=== PATIENT | female | born 1975 | race Caucasian/White ===

== ENCOUNTER 2021-01-22 09:21 | Emergency (ER) | payer OTHER ==
[~2021-01-22] VITALS: Ht 154.9 cm; Wt 59.0 kg
[~2021-01-22 09:21] MED LIST: ALBUTEROL2.5 MG/0.5 INH; BUTALB-CAFF-AC1 EACH PO; CHANTIX1 MG PO; CIPRO500 MG PO; CLONAZEPAM 1 MG1 M1 PO; FLAGYL500 MG PO; IBUPROFEN 800800 M1 PO; LISINOPRIL-HCT1 EAC1 PO; NORCO 5-325 TA1 EACH PO; ONDANSETRON HCL4 M2 PO; PHENERGAN 25 MG25 M1 PO; PROZAC20 MG PO; SINGULAIR 10 MG10 M1 PO; TRAMADOL 50 MG50 MG PO; VENTOLIN HFA 1818 GM INH
[2021-01-22] MEDS ORDERED: TOPROL XL25 MG PO (09:42)
[2021-01-22] MEDS ORDERED: MEDROLDOSEPACK PO (10:04)
[2021-01-22] MEDS ORDERED: FLEXERIL PO (10:04)
[2021-01-22] MEDS ORDERED: NORCO5 PO (10:04)
[2021-01-22 10:41] VITALS: BP 129/87
== END 2021-01-22 11:02 | disposition home or self-care (01) ==
LOC: ER 09:21
DX: S46.811A Strain of other muscles, fascia and tendons at shoulder and upper arm level, right arm, initial encounter (principal); I10 Essential (primary) hypertension; J45.909 Unspecified asthma, uncomplicated; G89.29 Other chronic pain; F17.210 Nicotine dependence, cigarettes, uncomplicated; Z79.899 Other long term (current) drug therapy; X50.1XXA Overexertion from prolonged static or awkward postures, initial encounter; Y93.89 Activity, other specified; Y92.89 Other specified places as the place of occurrence of the external cause; Y99.9 Unspecified external cause status